=== PATIENT | male | born 1950 | race Caucasian/White ===

== ENCOUNTER 2024-03-15 16:05 | Inpatient (IN) | payer MEDICARE, OTHER, MEDICAID ==
[~2024-03-15] VITALS: Ht 170.2 cm; Wt 63.5 kg
[2024-03-15 16:35] LABS: *BILIRUBIN,URIN NEGATIVE (NEGATIVE); *BLOOD, URINE NEGATIVE (NEGATIVE); *CLARITY,URINE SLIGHTLY CLOUDY (CLEAR); *COLOR,URINE YELLOW (YELLOW); *KETONES,URINE NEGATIVE (NEGATIVE); *PROTEIN,URINE 2+ (NEGATIVE); LEUKOCYTE ESTERASE ,URINE TRACE (NEGATIVE); NITRITE, URINE NEGATIVE (NEGATIVE); PH,URINE 6.5 (5.0-8.0); UGLUCOSE NEGATIVE (NEGATIVE)
[2024-03-15 16:39] LABS: BASOPHILS # (AUTO) 0.1 K/UL (0.0-0.2); BASOPHILS % (AUTO) 2.3 % (0.0-2.0); DIFFERENTIAL COMMENT 0; EOSINOPHILS # (AUTO) 0.2 K/uL (0.0-0.7); EOSINOPHILS % (AUTO) 3.2 % (0.0-7.0); HEMATOCRIT 30.1 % (36.7-47.1); LYMPHOCYTES # (AUTO) 0.9 K/uL (0.8-4.8); LYMPHOCYTES % (AUTO) 16.3 % (20.5-51.5); MEAN CORPUSCULAR HEMOGLOBIN 26.8 uug (23.8-33.4); MEAN CORPUSCULAR HGB CONC 33 g/dL (32.5-36.3); MONOCYTES # (AUTO) 0.5 K/uL (0.1-1.30); MONOCYTES % (AUTO) 9.6 % (0.0-11.0); NEUTROPHILS # (AUTO) 3.7 K/uL (1.8-8.9); NEUTROPHILS % (AUTO) 68.6 % (38.5-71.5); PLATELET COUNT (AUTO) 338 K/uL (152-348); RED BLOOD CELL COUNT(AUTO) 3.72 MIL/uL (4.06-5.63); RED CELL DISTRIBUTION WIDTH 15.7 % (12.1-16.2); WHITE BLOOD COUNT (AUTO) 5.4 K/uL (3.6-10.2)
[2024-03-15 16:41] LABS: CALCIUM 9.1 mg/dL (8.5-10.1); CARBON DIOXIDE 26 mmol/L (21-32); CHLORIDE 102 mmol/L (98-107); CREATININE 0.9 mg/dL (0.6-1.3); GLUCOSE 100 mg/dL (74-106); POTASSIUM 4.3 mmol/L (3.5-5.1); SODIUM SERUM 137 mmol/L (136-145); UREA NITROGEN, BLOOD 18 mg/dL (7-18)
[2024-03-15 16:47] LABS: ALANINE AMINOTRANSFERASE 23 U/L (16-63); ALKALINE PHOSPHATASE 631 U/L (50-136); ASPARTATE AMINOTRANSFERASE 26 U/L (15-37); BILIRUBIN,DIRECT 0.1 mg/dL (0.0-0.2); BILIRUBIN,TOTAL 0.3 mg/dL (0.2-1.0); TOTAL PROTEIN, SERUM 7.6 g/dL (6.4-8.2)
[2024-03-15 16:48] LABS: ETHANOL < 3 MG/DL (0-10)
[2024-03-15 16:52] LABS: RBC,URINE NONE SEEN /HPF (0-3); WBC,URINE 20-50 /HPF (0-3)
[2024-03-15 16:53] LABS: *AMPHETAMINE, URINE NEGATIVE (NEGATIVE); *BARBITURATE, URINE NEGATIVE (NEGATIVE); *BENZODIAZEPINE, URINE POSITIVE (NEGATIVE); *CANNABINOID, URINE NEGATIVE (NEGATIVE); *COCCAINE, URINE NEGATIVE (NEGATIVE); *OPIATE, URINE NEGATIVE (NEGATIVE); *PHENCYCLIDINE SCREEN,URINE NEGATIVE (NEGATIVE); BACTERIA,URINE MODERATE /HPF (NONE SEEN); FENTANYL, URINE NEGATIVE (NEGATIVE); SQUAMOUS EPITHELIAL CELL,UR FEW /HPF (NONE SEEN); URINE AMORPHOUS URATE MODERATE /HPF
[2024-03-15] MEDS ORDERED: ACET-3117 PO (17:01)
[2024-03-15] MEDS ORDERED: ACET-2030 PO ×2 (17:01)
[2024-03-15] MEDS ORDERED: MAG-55 PO (17:01)
[2024-03-15] MEDS ORDERED: FERR-56 PO (17:01)
[2024-03-15] MEDS ORDERED: ASCO500C18 PO (17:01)
[2024-03-15] MEDS ORDERED: MAGN400O6 PO (17:01)
[2024-03-15] MEDS ORDERED: CHOL500062 PO (17:01)
[2024-03-15] MEDS ORDERED: TAMS-3 PO (17:01)
[2024-03-15] MEDS ORDERED: NA P133E RC (17:01)
[2024-03-15] MEDS ORDERED: MELA5TAB21 PO (17:01)
[2024-03-15] MEDS ORDERED: RISP0.5T5 PO (17:01)
[2024-03-15] MEDS ORDERED: BISA10SU61 RC (17:01)
[2024-03-15] MEDS ORDERED: MELATONIN 3 MG TABLET ONE (19:30)
[2024-03-15] MEDS: MELATONIN 3 MG TABLET PO STA (19:30)
[2024-03-15] MEDS ORDERED: MAGNESIUM HYDROXIDE 30 ML LIQUID UDC PO PRN (21:45)
[2024-03-15] MEDS ORDERED: TEMAZEPAM 7.5 MG CAPSULE PO PRN (21:45)
[2024-03-15] MEDS ORDERED: MAG HYDROX/AL HYDROX/SIMETH 30 ML LIQUID UDC PO PRN (21:45)
[2024-03-15] MEDS ORDERED: ACETAMINOPHEN 325 MG TABLET PO PRN (21:45)
[2024-03-15] MEDS ORDERED: LORAZEPAM 1 MG TABLET PO PRN (21:45)
[2024-03-15 22:30] VITALS: BP 118/65; TEMP 97.4
[2024-03-16 05:53] VITALS: BP 113/61; TEMP 98.2
[2024-03-16 07:14] LABS: ALANINE AMINOTRANSFERASE 25 U/L (16-63); ALBUMIN 2.8 g/dL (3.4-5.0); ALKALINE PHOSPHATASE 622 U/L (50-136); ASPARTATE AMINOTRANSFERASE 28 U/L (15-37); BILIRUBIN,TOTAL 0.4 mg/dL (0.2-1.0); CALCIUM 9.4 mg/dL (8.5-10.1); CARBON DIOXIDE 27 mmol/L (21-32); CHLORIDE 104 mmol/L (98-107); CREATININE 0.9 mg/dL (0.6-1.3); GLUCOSE 87 mg/dL (74-106); POTASSIUM 4.5 mmol/L (3.5-5.1); SODIUM SERUM 141 mmol/L (136-145); TOTAL PROTEIN, SERUM 7.4 g/dL (6.4-8.2); UREA NITROGEN, BLOOD 15 mg/dL (7-18)
[2024-03-16] MEDS ORDERED: MELA5TAB PO (09:54)
[2024-03-16] MEDS ORDERED: ACET325T53 PO (09:54)
[2024-03-16] MEDS ORDERED: CHOL-35 PO (09:54)
[2024-03-16 12:00] VITALS: BP 114/65; TEMP 97.4; O2SAT 96
[2024-03-16 16:30] VITALS: BP 124/58; TEMP 97.5; O2SAT 98
[2024-03-16] MEDS: risperiDONE 0.5 MG TABLET PO SCH (16:31)
[2024-03-16] MEDS: CEphaleXIN 500 MG CAPSULE PO SCH (16:31)
[2024-03-16 20:00] VITALS: BP 132/75; TEMP 98.5; O2SAT 97
[2024-03-16] MEDS: TEMAZEPAM 7.5 MG CAPSULE PO PRN (22:18)
[2024-03-17] MEDS: PANTOPRAZOLE SODIUM 40 MG TABLET.DR PO SCH (06:02)
[2024-03-17 06:08] VITALS: BP 113/66; TEMP 97.5; O2SAT 97
[2024-03-17 07:35] LABS: IRON, SERUM 28 ug/dL (50-175)
[2024-03-17 11:07] VITALS: BP 108/59; TEMP 97.6; O2SAT 98
[2024-03-17] MEDS ORDERED: LORAZEPAM 0.5 MG TABLET PO PRN (14:00)
[2024-03-17] MEDS: LORAZEPAM 1 MG TABLET PO PRN (14:07)
[2024-03-17 18:00] VITALS: BP 136/73; TEMP 99.4; O2SAT 92
[2024-03-17 20:00] VITALS: BP 128/77; TEMP 98.1; O2SAT 99
[2024-03-17] MEDS: risperiDONE 0.5 MG TABLET PO SCH (20:25)
[2024-03-17] MEDS ORDERED: risperiDONE 0.5 MG TABLET PO SCH (21:00)
[2024-03-18 06:00] VITALS: BP 118/62; TEMP 97.7; O2SAT 95
[2024-03-18 06:48] LABS: BASOPHILS # (AUTO) 0.1 K/UL (0.0-0.2); BASOPHILS % (AUTO) 1.1 % (0.0-2.0); EOSINOPHILS # (AUTO) 0.2 K/uL (0.0-0.7); EOSINOPHILS % (AUTO) 2.7 % (0.0-7.0); HEMATOCRIT 29.7 % (36.7-47.1); HEMOGLOBIN 10.1 g/dL (12.5-16.3); LYMPHOCYTES # (AUTO) 1.1 K/uL (0.8-4.8); LYMPHOCYTES % (AUTO) 19.2 % (20.5-51.5); MEAN CORPUSCULAR HEMOGLOBIN 27.2 uug (23.8-33.4); MEAN CORPUSCULAR HGB CONC 34 g/dL (32.5-36.3); MEAN CORPUSCULAR VOLUME 80.1 fL (73.0-96.2); MONOCYTES # (AUTO) 0.7 K/uL (0.1-1.30); MONOCYTES % (AUTO) 12.6 % (0.0-11.0); NEUTROPHILS # (AUTO) 3.7 K/uL (1.8-8.9); NEUTROPHILS % (AUTO) 64.4 % (38.5-71.5); PLATELET COUNT (AUTO) 291 K/uL (152-348); RED CELL DISTRIBUTION WIDTH 15.5 % (12.1-16.2); WHITE BLOOD COUNT (AUTO) 5.8 K/uL (3.6-10.2)
[2024-03-18 07:13] LABS: DIFFERENTIAL COMMENT 1
[2024-03-18 07:19] LABS: ALANINE AMINOTRANSFERASE 22 U/L (16-63); ALBUMIN 2.7 g/dL (3.4-5.0); ALKALINE PHOSPHATASE 573 U/L (50-136); ASPARTATE AMINOTRANSFERASE 14 U/L (15-37); BILIRUBIN,TOTAL 0.4 mg/dL (0.2-1.0); CALCIUM 9.3 mg/dL (8.5-10.1); CARBON DIOXIDE 25 mmol/L (21-32); CHLORIDE 101 mmol/L (98-107); CREATININE 0.9 mg/dL (0.6-1.3); GLUCOSE 82 mg/dL (74-106); SODIUM SERUM 136 mmol/L (136-145); UREA NITROGEN, BLOOD 15 mg/dL (7-18)
[2024-03-18 08:20] VITALS: BP 100/63; TEMP 98.6; O2SAT 96
[2024-03-18] MEDS ORDERED: FLEET ENEMA 133 ML BOTTLE RC PRN (10:30)
[2024-03-18 15:40] VITALS: BP 105/67; TEMP 98.4; O2SAT 97
[2024-03-18] MEDS: TAMSULOSIN HCL 0.4 MG CAP.SR.24H PO SCH (20:31)
[2024-03-18 20:33] VITALS: BP 112/75; TEMP 98; O2SAT 97
[2024-03-19 04:55] VITALS: BP 108/70; TEMP 98; O2SAT 97
[2024-03-19 08:00] VITALS: BP 118/78; TEMP 97.6; O2SAT 97
[2024-03-19] MEDS: FERROUS SULFATE 325 MG TABEC PO SCH (08:47)
[2024-03-19 16:00] VITALS: BP 128/79; TEMP 97.8; O2SAT 97
[2024-03-19 19:00] VITALS: BP 125/76; TEMP 97.7; O2SAT 94
[2024-03-20 06:00] VITALS: BP 119/60; TEMP 98.1; O2SAT 95
[2024-03-20 07:36] VITALS: BP 98/76; TEMP 98.2; O2SAT 95
[2024-03-20 08:26] LABS: ALANINE AMINOTRANSFERASE 18 U/L (16-63); ALBUMIN 2.8 g/dL (3.4-5.0); ALKALINE PHOSPHATASE 565 U/L (50-136); ASPARTATE AMINOTRANSFERASE 13 U/L (15-37); BILIRUBIN,TOTAL 0.3 mg/dL (0.2-1.0); CALCIUM 9.4 mg/dL (8.5-10.1); CARBON DIOXIDE 24 mmol/L (21-32); CHLORIDE 102 mmol/L (98-107); CREATININE 0.8 mg/dL (0.6-1.3); GLUCOSE 87 mg/dL (74-106); POTASSIUM 3.9 mmol/L (3.5-5.1); SODIUM SERUM 139 mmol/L (136-145); TOTAL PROTEIN, SERUM 7.2 g/dL (6.4-8.2); UREA NITROGEN, BLOOD 15 mg/dL (7-18)
[2024-03-20 11:45] VITALS: BP 104/67; TEMP 97.6; O2SAT 96
[2024-03-20] MEDS: DIVALPROEX SPRINKLE 125 MG CAP.SPRINK PO SCH (13:34)
[2024-03-20 16:06] LABS: A/G RATIO 0.7 (0.7-1.7); ALBUMIN 2.6 g/dL (2.9-4.4); ALPHA-1-GLOBULIN 0.4 g/dL (0.0-0.4); ALPHA-2-GLOBULIN 1.2 g/dL (0.4-1.0); GAMMA GLOBULIN 1.1 g/dL (0.4-1.8); GLOBULIN, TOTAL 3.8 g/dL (2.2-3.9); M-SPIKE Not Observed g/dL (Not Observed); PROTEIN, TOTAL 6.4 g/dL (6.0-8.5)
[2024-03-20 16:35] VITALS: BP 119/73; TEMP 98.2; O2SAT 96
[2024-03-20] MEDS: ENSURE ENLIVE (VAN) 240 ML LIQUID PO SCH (18:38)
[2024-03-20] MEDS: AMOXICILLIN-CLAVUL 500-125MG TABLET PO SCH (18:38)
[2024-03-20 19:40] VITALS: BP 141/72; TEMP 97.9; O2SAT 95
[2024-03-21 05:30] VITALS: BP 101/82; TEMP 97.7; O2SAT 96
[2024-03-21 11:55] VITALS: BP 100/68; TEMP 97.8; O2SAT 94
[2024-03-21 15:42] VITALS: BP 117/74; TEMP 97.7; O2SAT 96
[2024-03-21 20:07] VITALS: BP 112/65; TEMP 97.8; O2SAT 97
[2024-03-22 05:34] VITALS: BP 101/56; TEMP 97.5; O2SAT 95
[2024-03-22 08:00] VITALS: BP 121/79; TEMP 98.1; O2SAT 97
[2024-03-22] MEDS: DIVALPROEX SPRINKLE 125 MG CAP.SPRINK PO SCH (08:55)
[2024-03-22 12:00] VITALS: BP 102/61; TEMP 98; O2SAT 96
[2024-03-22 16:00] VITALS: BP 111/54; TEMP 98.1; O2SAT 97
== END 2024-03-22 19:00 | DRG 885 ==
LOC: ER 16:05 → GPSOV3 21:05
PROVIDERS: ADMIT Psychiatry & Neurology Psychosomatic Medicine; ATTEND Nurse Practitioner Acute Care
DX: F29 Unspecified psychosis not due to a substance or known physiological condition (principal); F03.93 Unspecified dementia, unspecified severity, with mood disturbance; N13.8 Other obstructive and reflux uropathy; E44.0 Moderate protein-calorie malnutrition; N39.0 Urinary tract infection, site not specified; F03.918 Unspecified dementia, unspecified severity, with other behavioral disturbance; N40.1 Benign prostatic hyperplasia with lower urinary tract symptoms; Z93.6 Other artificial openings of urinary tract status; E88.09 Other disorders of plasma-protein metabolism, not elsewhere classified; B96.4 Proteus (mirabilis) (morganii) as the cause of diseases classified elsewhere; I10 Essential (primary) hypertension; E11.9 Type 2 diabetes mellitus without complications; Z79.899 Other long term (current) drug therapy; D63.8 Anemia in other chronic diseases classified elsewhere; C44.91 Basal cell carcinoma of skin, unspecified
CPT/HCPCS: 36415; 83550; 83615; 84155; 84165; 85025; A4606; A4663; G0480